=== PATIENT | female | born 1990 | race Caucasian/White ===

== ENCOUNTER 2022-11-12 11:23 | Observation (INO) | payer OTHER ==
[2022-11-12] MEDS ORDERED: Lactated Ringers 1,000 ML IV SCH (12:30)
[2022-11-12] MEDS ORDERED: Metoclopramide 10 MG/2 ML SDV IVPUSH PRN (13:20)
[2022-11-12] MEDS ORDERED: Naloxone 0.4 MG/ML SDV IVPUSH PRN (13:20)
[2022-11-12] MEDS ORDERED: Morphine 2 MG/ML SYRINGE IVPUSH PRN (13:20)
[2022-11-12] MEDS ORDERED: fentaNYL 50 MCG/ML SDV IVPUSH PRN (13:20)
[2022-11-12] MEDS ORDERED: Ondansetron 4 MG/2 ML SDV IVPUSH PRN ×2 (13:20→15:44)
[2022-11-12] MEDS ORDERED: Albuterol 0.083% 2.5 MG/3 ML Neb Soln NEB PRN (13:20)
[2022-11-12] MEDS ORDERED: HYDROmorphone 1 MG/ML Syringe IVPUSH PRN (13:20)
[2022-11-12] MEDS ORDERED: Propofol 200 MG/20 ML SDV ONE (14:06)
[2022-11-12] MEDS ORDERED: fentaNYL 100 MCG/2 ML SDV ONE ×3 (14:06→14:54)
[2022-11-12] MEDS ORDERED: Ketamine 500 mg/10 ML MDV ONE (14:06)
[2022-11-12] MEDS ORDERED: Ropivacaine 0.5% 5 MG/ML 30 ML SDV ONE (14:12)
[2022-11-12] MEDS ORDERED: Famotidine 20 MG/2 ML SDV ONE (14:12)
[2022-11-12] MEDS ORDERED: Dexamethasone 4 MG/ML 5 ML MDV ONE (14:52)
[2022-11-12] MEDS ORDERED: ceFAZolin 1 GM Vial ONE (14:52)
[2022-11-12] MEDS ORDERED: Ondansetron 4 MG/2 ML SDV ONE (14:52)
[2022-11-12] MEDS ORDERED: Ketorolac 30 MG/ML SDV ONE (14:52)
[2022-11-12] MEDS ORDERED: Sugammadex Sodium 200 MG/2 ML VIAL ONE (14:52)
[2022-11-12] MEDS ORDERED: Rocuronium Bromide 50 MG/5 ML Syringe ONE (14:52)
[2022-11-12] MEDS ORDERED: HYDROmorphone 2 MG/ML Syringe ONE (15:28)
[2022-11-12] MEDS ORDERED: Morphine 4 MG/ML Syringe IVPUSH PRN (15:44)
[2022-11-12] MEDS ORDERED: Promethazine 25 MG/ML SDV IM PRN (15:44)
[2022-11-12] MEDS ORDERED: Ketorolac 30 MG/ML SDV IVPUSH ONE (15:44)
[2022-11-12] MEDS: Acetaminophen/oxyCODONE 325-5 MG Tab PO PRN (20:04)
[2022-11-12] MEDS ORDERED: Ketorolac 30 MG/ML SDV IVPUSH PRN (21:00)
[2022-11-13 07:09] LABS: CARBON DIOXIDE,CO2 25.9 mmol/L (21.0-32.0); POTASSIUM,K 4.3 mmol/L (3.5-5.1)
[2022-11-13] MEDS: Acetaminophen/oxyCODONE 325-5 MG Tab PO PRN ×2 (07:50→16:10)
[2022-11-14] MEDS: Acetaminophen/oxyCODONE 325-5 MG Tab PO PRN ×2 (08:04→12:17)
== END 2022-11-14 12:30 | disposition home or self-care (01) ==
LOC: MW.SDS 11:23 → MW.MS 16:58 → MW.SDS 11-13 08:36 → MW.MS 11-13 08:40
PROVIDERS: ADMIT Obstetrics & Gynecology; ATTEND Obstetrics & Gynecology
DX: N80.121 Deep endometriosis of right ovary (principal); N83.11 Corpus luteum cyst of right ovary; N73.6 Female pelvic peritoneal adhesions (postinfective); N80.201 Endometriosis of right fallopian tube, unspecified depth; K59.09 Other constipation
CPT/HCPCS: 36415; 58720; 80048; 81025; 85025; A9270; J0131; J0690; J1100; J1170; J2270; J2405; J2550; J2704; J2795; J3010; J3490; J7120; 00840; 64488; J1885

== ENCOUNTER 2023-02-08 21:55 | Emergency (ER) | payer OTHER ==
[2023-02-08] MEDS ORDERED: Sodium Chloride 0.9% 2.5 ML Syringe FLUSH PRN (22:10)
[2023-02-08] MEDS ORDERED: Sodium Chloride 0.9% 10 ML Syringe FLUSH PRN (22:10)
[2023-02-08 23:16] LABS: BASE EXCESS VENOUS -2.5 (-2.0-3.0); PH,VENOUS 7.35 (7.31-7.41)
[2023-02-08 23:17] LABS: BASOPHILS PERCENT AUTO 0.4 % (0.0-1.5); EOSINOPHILS ABSOLUTE AUTO 0.2 K/uL (0.0-0.7); EOSINOPHILS PERCENT AUTO 1.6 % (0.0-7.0); HEMATOCRIT 36.5 % (36.0-46.0); HEMOGLOBIN 12.3 g/dL (12.0-16.0); LYMPHOCYTES PERCENT AUTO 20.3 % (16.0-40.0); MEAN CORPUSCULAR HEMOGLOBIN 30.1 pg (27.0-32.0); MEAN CORPUSCULAR HGB CONC 33.7 g/dL (31.0-37.0); MEAN CORPUSCULAR VOLUME 89.5 fL (80.0-98.0); MONOCYTES ABSOLUTE AUTO 0.7 K/uL (0.0-0.8); MONOCYTES PERCENT AUTO 6.9 % (0.0-15.0); NEUTROPHILS ABSOLUTE AUTO 7.1 K/uL (1.4-5.7); NEUTROPHILS PERCENT AUTO 70.8 % (48.0-80.0); NRBC ABSOLUTE 0 K/uL; PLATELET COUNT,PLT 331 K/uL (150-400); RED BLOOD CELL COUNT 4.08 M/uL (4.30-5.90); WHITE BLOOD CELL COUNT,WBC 10.01 K/uL (4.0-11.0)
[2023-02-08 23:19] LABS: INR 0.97 (0.86-1.11)
[2023-02-08 23:22] LABS: APPEARANCE,URINE CLEAR; BILIRUBIN,URINE NEGATIVE (NEGATIVE); COLOR,URINE YELLOW; GLUCOSE,URINE NEGATIVE (NEGATIVE); KETONES,URINE NEGATIVE (NEGATIVE); LEUKOCYTE ESTERASE,URINE NEGATIVE (NEGATIVE); NITRITE,URINE NEGATIVE (NEGATIVE); OCCULT BLOOD,URINE NEGATIVE (NEGATIVE); PH,URINE 5.5 (5.0-8.0); PROTEIN,URINE NEGATIVE (NEGATIVE); UROBILINOGEN,URINE 0.2 EU/dL (<2.0)
[2023-02-08 23:40] LABS: BACTERIA,URINE FEW (NEGATIVE); EPITHELIAL CELLS,URINE FEW (NONE-FEW); RBC,URINE 0-1 (0-2/HPF); WBC,URINE 0-3 (0-5/HPF)
[2023-02-08 23:41] LABS: A/G RATIO 0.9 (0.9-1.6); ALBUMIN 3.8 g/dL (3.4-5.0); BILIRUBIN TOTAL 0.5 mg/dL (0.2-1.0); CARBON DIOXIDE,CO2 21.9 mmol/L (21.0-32.0); CREATININE 0.6 mg/dL (0.6-1.0); EST CRCL DRUG DOSING (CG) 141.98 mL/min; POTASSIUM,K 3.8 mmol/L (3.5-5.1); PROTEIN TOTAL,TP 8.2 g/dL (6.4-8.2)
[2023-02-08 23:44] LABS: LACTIC ACID 1.2 mmol/L (0.4-2.0)
== END 2023-02-09 04:32 | disposition home or self-care (01) ==
LOC: MW.ED 21:55
DX: Z77.028 Contact with and (suspected) exposure to other hazardous aromatic compounds (principal)
CPT/HCPCS: 36415; 71045; 80053; 81001; 82803; 83605; 85025; 85610; 93005; 99285; J3490; 83655; 83930; 93010; 99284